=== PATIENT | female | born 1940 | race Caucasian/White ===

== ENCOUNTER 2020-05-31 15:15 | Emergency (ER) | payer OTHER, MEDICARE ==
[~2020-05-31] VITALS: Ht 160 cm; Wt 66.2 kg
--- OUTSIDE RECORDS SUMMARY | ~2020-05-31 | XMS ---
Demographics + + + | Address | [address] | | | [place] [address] | + + + | Preferred Language | Unknown | + + + | Marital Status | Unknown | + + + | Anglican Affiliation | Unknown | + + + | Race | Unknown | + + + | Ethnic Group | Unknown | + + + Author + + + | Author | [facility] | + + + | Organization | [facility] | + + + | Address | [address] | | | [place] [address] | + + + | Phone | | + + + Care Team Providers + + + + | Care Dental Sales Representative Name | Role | Phone | + + + + Unavailable | Unavailable | + + + + PROBLEMS +---------+ + + +--------+ + + | Type | Condition | ICD9-CM | [id number] | Onset | Condition | SNOMED | | | | Code | Code | Dates | Status | Code | +---------+ + + +--------+ + + | Problem | Hypertensi | 401.9 | | | Active | [id number] | | | on | | | | | | +---------+ + + +--------+ + + ALLERGIES No Information SOCIAL HISTORY Never Assessed PLAN OF CARE VITAL SIGNS MEDICATIONS Unknown Medications RESULTS No Results PROCEDURES No Known procedures IMMUNIZATIONS No Known Immunizations MEDICAL (GENERAL) HISTORY + + +------+ | Type | Description | Date | + + +------+ | Medical History | rapid heart rate | | + + +------+ | Medical History | depression | | + + +------+ | Medical History | lupus | | + + +------+ | Medical History | shingles | | + + +------+ | Surgical History | tonsillectomy | | + + +------+ | Surgical History | gall bladder | | + + +------+ | Surgical History | hysterectomy with interval | | | | bilateral oophorectomy | | + + +------+ | Surgical History | wisdom teeth extract | | + + +------+"
[~2020-05-31 15:15] MED LIST: ASPIRIN EC81 MG PO; ATENOLOL25 MG PO; AZO-TABS95 MG PO; CENTRAVITES 501 EACH PO; DOXEPIN HCL100 MG PO; GARLIC1000 MG PO; KLOR-CON 1010 MEQ PO; NAPROSYN500 MG PO; NORCO 5-325 TA1 EACH PO; OMEPRAZOLE20 MG PO
[2020-05-31] MEDS ORDERED: ATENOLOL50 MG PO (15:34)
== END 2020-05-31 18:19 | disposition home or self-care (01) ==
LOC: ED 15:15
PROC: 0HQ0XZZ Repair Scalp Skin, External Approach (ICD-10-PCS; principal; 2020-05-31)
DX: S01.01XA Laceration without foreign body of scalp, initial encounter (principal); S50.312A Abrasion of left elbow, initial encounter; Z87.891 Personal history of nicotine dependence; Z88.2 Allergy status to sulfonamides; Z79.899 Other long term (current) drug therapy; Z79.82 Long term (current) use of aspirin; W18.30XA Fall on same level, unspecified, initial encounter
CPT/HCPCS: 12002; 99283-25

== ENCOUNTER 2020-06-09 10:59 | Emergency (ER) | payer MEDICARE, OTHER ==
[~2020-06-09] VITALS: Ht 160 cm; Wt 66.2 kg
[~2020-06-09 10:59] MED LIST changes: +ATENOLOL50 MG PO
--- OUTSIDE RECORDS SUMMARY | 2020-06-09 11:02 | XMS ---
PreManage Notification: TIESHA WOOD [employer] Events No recent Security Events currently on file CRITERIA MET - [facility] - 2 Visits in 30 Days CARE PROVIDERS REKHA HAJI Physician Adjutant General 06/01/2020-Current PHONE: [phone] Ch[facility] has no Care Guidelines for this patient. Care History Medical/Surgical 06/01/2020 [facility] - [facility]W RECVD CASE MANAGEMENT CONSULT-PATIENT LIVES AT HOME AND HAS RECENT FALLS- CONCERNS FOR BATHROOM SET UP FOR SAFETY. - CHW CALLED PATIENT- PATIENT DOES HAVE A STEP SON WHO LIVES IN HER BASEMENT, SISTER LIVES ACROSS THE STREET, AND HAS CONSISTENT HELP WITH FAMILY AND NEIGHBOR NEXT DOOR. SHE HAS NO CONCERNS FOR FURTHER HELP IN HER HOME. - CHW DISCUSSED THE POSSIBILITY OF A REFERRAL TO HOME HEALTH SERVICES -DUE TO PATIENT RECENT WEAKNESS. PATIENT STATED SHE HAS AN APT IN SEPT WITH PCP AND WILL DISCUSS MEDICATION CHANGES-PATIENT FEELS HER WEAKNESS IS DUE TO DEPRESSION MEDICATION. - CHW PROVIDED CONTACT NUMBER TO PATIENT TO CALL IF FURTHER RESOURCES AND OR HELP IN THE HOME IS NEEDED. - W HAD PCP UPDATED IN [facility] AND RECORDS SENT TO PCP OFFICE- CONTACTED PCP OFFICE REQUESTING A REVIEW OF RECENT ED VISIT TO SEE IF AN EARLIER APT CAN BE SCHEDULED IF NEEDED. E.D. VISIT COUNT (12 MO.) 2 [facility] TOTAL 2 NOTE: Visits indicate total known visits. ED/UCC VISIT TRACKING (12 MO.) 06/09/2020 10:59 [facility] TYPE: Emergency COMPLAINT: - STAPLE REMOVAL 05/31/2020 15:16 [facility] TYPE: Emergency COMPLAINT: - GLF, BACK OF HEAD/L ARM LACERATIONS DIAGNOSES: - Abrasion of left elbow, initial encounter - Allergy status to sulfonamides status - Laceration without foreign body of left elbow, initial encoun - Other chcf (current) drug therapy - Laceration without foreign body of scalp, initial encounter - Personal history of nicotine dependence - Fall on same level, unspecified, initial encounter - termite inspector (current) use of aspirin INPATIENT VISIT TRACKING (12 MO.) No inpatient visits to display in this time frame [email or web address]
== END 2020-06-09 11:32 | disposition home or self-care (01) ==
LOC: ED 10:59
DX: Z48.02 Encounter for removal of sutures (principal)

== ENCOUNTER 2025-08-14 12:44 | Inpatient (IN) | payer MEDICARE, OTHER ==
[~2025-08-14] VITALS: Ht 160 cm; Wt 48.1 kg
[2025-08-14 14:24] LABS: BASOPHILS 0 % (0.1-1.2); EOSINOPHILS 0 % (0.7-5.8); LYMPHOCYTES 3.2 % (19.3-51.7); MCH 21.8 PG (25.6-32.2); MCHC 29.1 g/dL (32.2-35.5); MCV 74.8 fL (79.4-94.8); MONOCYTES 5.4 % (4.7-12.5); NEUTROPHILS 90.7 % (34.0-71.1); RBC 2.34 M/uL (3.93-5.22)
[2025-08-14 14:35] LABS: INR 1.19 (0.80-1.30); PROTIME 14.3 Sec (11.2-14.2)
[2025-08-14 14:40] LABS: ALT (SGPT) 107.0 U/L (14-59); AST (SGOT) 270.0 U/L (15-37); GLOMERULAR FILTRATION RATE,EST 40.0 mL/min (>60); PROTEIN, TOTAL 6.3 g/dL (6.4-8.2); UREA NITROGEN 37.0 mg/dL (7-18)
[2025-08-14 16:17] LABS: BLOOD/HGB, URINE LARGE (Negative); KETONE, URINE TRACE (Negative); LEUK ESTERASE, URINE LARGE (negative); NITRITE, URINE NEGATIVE (negative)
[2025-08-14 16:39] LABS: BACTERIA, URINE 4+ /hpf (negative); CASTS, URINE NONE SEEN \\lpf; CRYSTALS, URINE NONE SEEN (0-1+); EPITHELIAL CELLS, URINE SQUAMOUS 1+ /lpf (0-1+); REFLEX CULTURE, URINE Yes (No)
[2025-08-14 18:10] LABS: ABO A; ANTIBODY SCREEN POSITIVE; RH POSITIVE
[2025-08-14 18:17] LABS: ABO A; RH POSITIVE
[2025-08-14] MEDS ORDERED: LORazepam 2 MG/ML VIAL IV ONE (20:30)
[2025-08-14 22:55] LABS: AMPHETAMINES, URINE NEGATIVE (NEGATIVE); BARBITURATES, URINE NEGATIVE (NEGATIVE); BENZODIAZEPINE, URINE NEGATIVE (NEGATIVE); CANNABINOID, URINE NEGATIVE (NEGATIVE); COCAINE, URINE NEGATIVE (NEGATIVE); ECSTASY, URINE NEGATIVE (NEGATIVE); FENTANYL, URINE NEGATIVE (NEGATIVE); METHADONE, URINE NEGATIVE (NEGATIVE); OPIATES, URINE NEGATIVE (NEGATIVE); OXYCODONE, URINE NEGATIVE (NEGATIVE); PHENCYCLIDINE, URINE NEGATIVE (NEGATIVE)
[2025-08-15] MEDS ORDERED: MORPHINE SULFATE 4 MG/ML VIAL IV PRN (01:30)
[2025-08-15] MEDS ORDERED: SODIUM CHLORIDE 0.9% 1,000 ML IV SCH (01:30)
[2025-08-15] MEDS ORDERED: ACETAMINOPHEN 325 MG TAB PO PRN ×2 (01:30→07:45)
[2025-08-15 03:12] VITALS: BP 135/54
--- NOTE | 2025-08-15 04:27 | NUR ---
0305 - admitted to room 110 from er via stretcher. on room air, crackles t/o, unable to follows some instructions and unable to do cdb. abd soft, staed that last bm was yesterday. multiple little pinpoint red scabbed over areas over back, chest, arms and legs, R leg edematous, cold to touch and bluish discolorotatiodueky, from knee are to toes. edema to l ankle and foot, reddneded coloring. Pt is alert and oriented to self only. mumbles speech. 2PA heavy assist when up to BSC, voided QS very strong smelling urine. Semireceptive to information. Unable to assess CMS or degree of information retained by pt. Bed alrms in place.
[2025-08-15 05:31] LABS: BASOPHILS 0.1 % (0.1-1.2); EOSINOPHILS 0 % (0.7-5.8); LYMPHOCYTES 4.1 % (19.3-51.7); MCH 21.9 PG (25.6-32.2); MCHC 29.2 g/dL (32.2-35.5); MCV 75.0 fL (79.4-94.8); MONOCYTES 7.9 % (4.7-12.5); NEUTROPHILS 87.0 % (34.0-71.1); RBC 2.28 M/uL (3.93-5.22)
[2025-08-15 05:53] LABS: ALT (SGPT) 136.0 U/L (14-59); AST (SGOT) 357.0 U/L (15-37); GLOMERULAR FILTRATION RATE,EST 45.0 mL/min (>60); PROTEIN, TOTAL 5.5 g/dL (6.4-8.2); UREA NITROGEN 33.0 mg/dL (7-18)
[2025-08-15 06:12] VITALS: BP 134/97
--- NOTE | 2025-08-15 06:20 | NUR ---
PT STATES SHE IS IN PAIN IN HEAD AND RIGHT LEG, PRN PAIN MED PROVIDED. TELE LEADS PUT BACK ON PT AND GOWN CHANGED. VS AND I&O COMPLETED. CALL LIGHT IN REACH.
--- NOTE | 2025-08-15 07:34 | NUR ---
PT RESTING SOUNDLY AT SHIFT REPORT. MET WITH NOC RN AND DR ASHFORD FOR CARE COORDINATION ON THIS PT LABS ORDERED PER DR ASHFORD. PT CONTINUES TO REST SOUNDLY BED ALARM IS SET AND PT IS VISIBLE FROM RN STATION. FALL MATS IN PLACE.
[2025-08-15 07:41] LABS: BASOPHILS 0.1 % (0.1-1.2); EOSINOPHILS 0.2 % (0.7-5.8); LYMPHOCYTES 3.0 % (19.3-51.7); MCH 21.7 PG (25.6-32.2); MCHC 28.8 g/dL (32.2-35.5); MCV 75.1 fL (79.4-94.8); MONOCYTES 7.1 % (4.7-12.5); NEUTROPHILS 89.2 % (34.0-71.1); RBC 2.17 M/uL (3.93-5.22)
[2025-08-15] MEDS ORDERED: 1/2 NS IV SCH (07:45)
[2025-08-15] MEDS ORDERED: HYDROmorphone HCL 1 MG/ML SYR IV PRN (07:45)
[2025-08-15] MEDS ORDERED: KCL IV SCH (07:45)
[2025-08-15 07:55] LABS: ALT (SGPT) 139.0 U/L (14-59); AST (SGOT) 363.0 U/L (15-37); GLOMERULAR FILTRATION RATE,EST 49.0 mL/min (>60); PROTEIN, TOTAL 5.5 g/dL (6.4-8.2); UREA NITROGEN 35.0 mg/dL (7-18)
--- NOTE | 2025-08-15 08:49 | NUR ---
PT AWAKENED FOR MORNING MEAL EATS A SMALL AMOUNT WITH STAFF ASSIST. PT INTERACTIVE ANSWERS QUESTIONS AND MAKES COMMENTS. AGREES SHE IS WARM ENOUGH AND COMFORTABLE RETURNS TO RESTING EYES CLOSED AFTER MEAL.
[2025-08-15] MEDS ORDERED: POTASSIUM CHLORIDE 10 MEQ TABCR PO SCH (09:00)
[2025-08-15] MEDS ORDERED: ASPIRIN 81 MG TABEC PO SCH (09:00)
[2025-08-15 09:58] VITALS: BP 107/44
--- NOTE | 2025-08-15 10:01 | NUR ---
FED PATIENT A APPLESAUCE AND ONE BITE OF PEARS AND TWO BITES OF CHEERIOS. TWO SPOON SIPS OF COFFEE FOR BREAKFAST. PATIENT IS SLEEPING NOW.
[2025-08-15 10:30] VITALS: BP 107/44
--- NOTE | 2025-08-15 10:33 | NUR ---
SPOKE WITH PATIENT CAREGIVER (JODI) THAT LIVES WITH THE PATIENT. THE PATIENT LIVES IN A SPLIT LEVEL HOME. PRIOR TO THIS SHE WAS NOT USING ANY DME AND AMBULATING AROUND THE HOUSE. HER SISTER AND DAUGHTER HAVE RECENTLY IN THE LAST TWO WEEKS. JODI WAS HER DAUGHTERS SPINNING LATHE OPERATOR HYDRAULIC. SHAUNNA RECENTLY STOPPED DRIVING DUE TO BEING IN AN ACCIDENT. PATIENT HAS A SON NANCIE [phone]. HAS ANOTHER SISTER SHE IS ATTEMPTING TO CONTACT. ATTEMPTED TO CALL GRANDDAUGHTER ALVERTOTRACEY ADITHYA UNABLE TO CONTACT HER.
--- NOTE | 2025-08-15 11:11 | NUR ---
[place]RAX[place] CALL FROM [facility] AT [facility]. PATIENT ACCEPTED TO [facility] TO DR. AMINA ROSARIO, ROOM 8A8. NUMBER FOR REPORT GIVEN. RN LONG TERM CARE DANA NICOLE CALL PLACED TO [facility]. [facility] ETA 1128. LIZBETH JIMÉNEZ RN UPDATE. CALL RETURNED TO CALL CENTER WITH [facility] ETA.
--- NOTE | 2025-08-15 11:54 | NUR ---
CALLED TO GIVE REPORT TO RECEIVING [facility] THEY TOOK THE NUMBER TO CALL THIS RADIO DISPATCHER BACK. [facility] HERE TO PICK PT UP BEDSIDE REPORT GIVEN. PT CAREGIVER JODI WAS HERE TO SEE PT AND AWARE OF TRANSPORT, AGREE'D TO TAKE PT CLOTHES BACK TO HER HOME, THEN STATES THROW THEM AWAY INSTEAD.
[2025-08-15] MEDS ORDERED: PHARMACY RENAL DOSE ADJUSTMENT 1 DOSE MISC PO SCH (12:00)
--- NOTE | 2025-08-15 13:19 | NUR ---
UR CLINICAL REVIEW: 2 MN FOR VERSALUS-PER WILDLIFE MANAGER MEETS INPT FOR UTI/ANEMIA/LIMB ISCHEMIA WITH NEED FOR TRANSFUSION, SERIAL LABS AND MONITORING MEDICARE INPT 08/15/25 @ 0127 ORDER MATCHES REG NO AUTH REQUIRED PER MEDICARE GUIDELINES TRANSFER TO HIGHER LEVEL OF CARE
[2025-08-15 14:48] LABS: ANTIBODY IDENTIFICATION SEE COMMENTS
[2025-08-15] MEDS ORDERED: DOXEPIN HCL 25 MG CAP PO SCH (21:00)
== END 2025-08-15 11:50 | disposition short-term general hospital (02) | DRG 300 ==
LOC: ED 12:44 → MS 08-15 01:27
PROVIDERS: Emergency Medicine; Family Medicine; ADMIT Internal Medicine; ATTEND Internal Medicine
DX: I70.221 Atherosclerosis of native arteries of extremities with rest pain, right leg (principal); N39.0 Urinary tract infection, site not specified; D50.9 Iron deficiency anemia, unspecified; D72.829 Elevated white blood cell count, unspecified; Z88.2 Allergy status to sulfonamides; Z79.899 Other long term (current) drug therapy; Z79.82 Long term (current) use of aspirin; Z98.890 Other specified postprocedural states
CPT/HCPCS: 36415; 73630; 73706; 80053; 80307; 81001; 82550; 83605; 83735; 85025; 85060; 85610; 86850; 86870; 86900; 86901; 86922; 96365; 96375; 99285-25; J0696; J2060; J2270; J3480; J7030; Q9967

== ENCOUNTER 2025-08-20 01:29 | Inpatient (IN) | payer MEDICARE, OTHER ==
[~2025-08-20] VITALS: Ht 160 cm; Wt 52.8 kg
--- NOTE | 2025-08-20 01:29 | NUR ---
PATIENT ARRIVED TO [place] FLOOR-DIRECT ADMIT FROM [facility] [place]. PRIMARY RN IN ROOM COMPLETING ADMISSION. DR YOON ON WAY TO FLOOR TO PLACE ADDITIONAL ORDERS.
[2025-08-20 01:45] VITALS: BP 136/101
[2025-08-20] MEDS ORDERED: MORPHINE SULFATE 10 MG/ML VIAL IV PRN (02:00)
[2025-08-20] MEDS ORDERED: ATROPINE SULFATE 1% OPTH DROPS SL PRN (02:00)
[2025-08-20] MEDS ORDERED: HALOPERIDOL LACTATE 5 MG/ML VIAL IV PRN ×2 (02:00)
[2025-08-20] MEDS ORDERED: MORPHINE SULFATE 4 MG/ML VIAL IV PRN ×2 (02:00)
[2025-08-20] MEDS ORDERED: ONDANSETRON 4 MG TAB ODT SL SCH (02:00)
[2025-08-20] MEDS ORDERED: LORazepam 2 MG/ML VIAL IV PRN ×3 (02:00)
[2025-08-20] MEDS ORDERED: ARTIFICIAL TEARS 15 ML BTL OU PRN (02:00)
--- NOTE | 2025-08-20 03:15 | NUR ---
PATIENT WITH PAIN RATING OF 6/10 PER FACE SCALE. PATIENT MEDICATED PER EMAR. CAMRYN CNA AT BEDSIDE.
--- NOTE | 2025-08-20 04:56 | NUR ---
PATIENT REPOSITIONED AT THIS TIME. PATIENT APPEARS COMFORTABLE. CALL LIGHT IS WITHIN REACH. PATIENT CURTAIN AND DOOR OPEN FOR DIRECT VISUALIZATIONS FROM NURSES STATION.
--- NOTE | 2025-08-20 05:39 | NUR ---
PATIENT MEDICATED PER EMAR DUE TO APPEARING IN PAIN AFTER BRIEF CHANGE FROM HAVING SMALL BM. PATIENT REPOSITIONED TO COMFORT. DOOR AND CURTAIN OPEN FOR DIRECT VISUALIZATION FROM NURSES STATION.
--- NOTE | 2025-08-20 07:15 | NUR ---
BEDSIDE REPORT REC'D FROM MARIANA. PT RR 12, HR RAPID. F/C DRAINING YELLOW URINE. ORAL CARE PROVIDED. SIDERAILS UP X4, CALL ASHFORD IN REACH, BED IN LOW POSITION AND LOCKED.
--- NOTE | 2025-08-20 07:40 | NUR ---
REPORT REC'D FROM MARIANA NICOLE. PT RESTING IN RECLINER. SPO2 94% ON 3LNC. PT DENIES C/O AT THIS TIME. PT OFFERED FLUIDS, HANDWIPES. CALL ASHFORD IN REACH, RECLINER LOCKED. PT INSTRUCTED TO CALL FOR ASSISTANCE.
--- NOTE | 2025-08-20 08:07 | NUR ---
PT NOTED WITHOUT RESPIRATIONS AND HEART RATE. PROUNOUNCED BY DR. ROMERO. DR. ROMERO TO NOTIFY FAMILY. SPIRITUAL CARE INFORMED.
[2025-08-20] MEDS ORDERED: SCOPOLAMINE 1 MG/3 DAYS PATCH 1 EACH TDSY TD SCH (09:00)
--- NOTE | 2025-08-20 10:36 | NUR ---
PT TRANSPORTED BY [facility]
== END 2025-08-20 10:36 | DRG 951 ==
LOC: MS 01:29
PROVIDERS: ADMIT Family Medicine; ATTEND Family Medicine
PROC: 0T9B70Z Drainage of Bladder with Drainage Device, Via Natural or Artificial Opening (ICD-10-PCS; principal; 2025-08-20)
DX: Z51.5 Encounter for palliative care (principal); F03.911 Unspecified dementia, unspecified severity, with agitation; I70.92 Chronic total occlusion of artery of the extremities; I70.221 Atherosclerosis of native arteries of extremities with rest pain, right leg; Z66 Do not resuscitate; Z88.2 Allergy status to sulfonamides; Z79.82 Long term (current) use of aspirin
CPT/HCPCS: A9270; J2060; J2270